=== PATIENT | male | born 1970 | race Hispanic/Latino ===

== ENCOUNTER 2019-11-04 02:51 | Emergency (ER) | payer SELFPAY ==
[~2019-11-04] VITALS: Ht 175.3 cm; Wt 86.4 kg
[2019-11-04 03:35] LABS: BASO % 0.3 % (0.0-1.0); EOS % 0.4 % (0.0-3.0); HEMATOCRIT 44.9 % (42.0-52.0); HEMOGLOBIN 15.5 g/dl (13.5-17.5); LYMPH # 0.7 10^3/uL (1.5-5.0); LYMPH % 6.7 % (24.0-44.0); MEAN CORPUSCULAR HEMOGLOBIN 30.6 pg (27.0-33.0); MEAN CORPUSCULAR HGB CONC 34.5 g/dl (32.0-36.5); MEAN CORPUSCULAR VOLUME 88.6 fl (80.0-96.0); MONO # 0.1 10^3/uL (0.0-0.8); MONO % 1.4 % (0.0-5.0); NEUTROPHILS # 8.9 10^3/uL (1.5-8.5); NEUTROPHILS % 90.9 % (36.0-66.0); PLATELET COUNT, AUTOMATED 235 10^3/uL (150-450); RED BLOOD COUNT 5.07 10^6/uL (4.30-6.10); WHITE BLOOD COUNT 9.8 10^3/uL (4.0-10.0)
[2019-11-04 03:56] LABS: ALBUMIN 3.9 GM/DL (3.2-5.2); ALT/SGPT 44 U/L (12-78); BILIRUBIN,DIRECT 0.2 MG/DL (0.0-0.2); BILIRUBIN,TOTAL 0.7 MG/DL (0.2-1.0); BLOOD UREA NITROGEN 14 MG/DL (7-18); CALCIUM LEVEL 8.9 MG/DL (8.5-10.1); CARBON DIOXIDE LEVEL 25 MEQ/L (21-32); CHLORIDE LEVEL 104 MEQ/L (98-107); CREATININE FOR GFR 1.19 MG/DL (0.70-1.30); GLOMERULAR FILTRATION RATE > 60.0 (>60); GLUCOSE, FASTING 130 MG/DL (70-100); LIPASE 106 U/L (73-393); POTASSIUM SERUM 3.7 MEQ/L (3.5-5.1); SODIUM LEVEL 138 MEQ/L (136-145); TOTAL PROTEIN 7.2 GM/DL (6.4-8.2)
--- NOTE | 2019-11-04 04:58 | REPVR ---
PROCEDURE INFORMATION: Exam: CT Abdomen And Pelvis Without Contrast Exam date and time: 11/04/2019 4:26 AM Age: 49 years old Clinical indication: Abdominal pain; Flank; Other: Bilateral; Additional info: Flank pain, dysuria TECHNIQUE: Imaging protocol: Computed tomography of the abdomen and pelvis without contrast. Radiation optimization: All CT scans at this facility use at least one of these dose optimization techniques: automated exposure control; mA and/or kV adjustment per patient size (includes targeted exams where dose is matched to clinical indication); or iterative reconstruction. COMPARISON: No relevant prior studies available. FINDINGS: Lungs: Bilateral dependent atelectasis. Linear atelectasis or scarring in the right middle lobe and lingula. Liver: Steatosis. Gallbladder and bile ducts: Normal. No calcified stones. No ductal dilation. Pancreas: Normal. No ductal dilation. Spleen: Normal. No splenomegaly. Adrenals: Normal. No mass. Kidneys and ureters: Nonobstructive right nephrolithiasis. No hydronephrosis. Stomach and bowel: Unremarkable. No obstruction. No mucosal thickening. Appendix: No evidence of appendicitis. Intraperitoneal space: Unremarkable. No free air. No significant fluid collection. Vasculature: Unremarkable. No abdominal aortic aneurysm. Lymph nodes: Unremarkable. No enlarged lymph nodes. Bladder: Urinary bladder wall thickening with trace perivesical fat stranding. Correlate with urinalysis for evidence of cystitis. Reproductive: Unremarkable as visualized. 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 Soft tissues: Fat containing umbilical hernia. IMPRESSION: Nonobstructive right nephrolithiasis. No hydronephrosis. Urinary bladder wall thickening with trace perivesical fat stranding. Correlate with urinalysis for evidence of cystitis. No bowel obstruction. Normal appendix. Electronically signed by: Shaka Conklin On 11/04/2019 04:57:24 AM
[2019-11-04 05:15] VITALS: BP 115/60
[2019-11-04] MEDS ORDERED: CIPROFLOXACIN 500MG TABLET PO ONE (05:15)
[2019-11-04] MEDS ORDERED: CIPR-249 PO (05:19)
[2019-11-04] MEDS ORDERED: IBUP-1022 PO (05:19)
--- NOTE | 2019-11-04 05:44 | REP ---
Clinical: Fever . Comparison: None . Findings: The mediastinum and cardiac silhouette are stable and within normal limits for portable technique. The lung sahu are clear without acute consolidation, effusion, or pneumothorax. Skeletal structures are intact. Impression: No acute cardiopulmonary process appreciated. Electronically Signed by Yoav Bermudez MD 11/04/2019 05:36 A
== END 2019-11-04 05:40 | disposition home or self-care (01) ==
LOC: M ED 02:51 → EDBD 02:51 → M ED 05:40
DX: N30.91 Cystitis, unspecified with hematuria (principal); N20.0 Calculus of kidney; Z88.8 Allergy status to other drugs, medicaments and biological substances